=== PATIENT | male | born 1995 | race Caucasian/White ===

== ENCOUNTER 2021-03-08 02:55 | Emergency (ER) | payer OTHER ==
[~2021-03-08] VITALS: Ht 188 cm; Wt 72.6 kg
--- NOTE | 2021-03-08 02:56 | NUR ---
PATIENT TAKEN TO ROOM 04 VIA GURNEY BY FILIPE.
[2021-03-08 02:57] VITALS: BP 116/71
--- NOTE | 2021-03-08 03:00 | NUR ---
25/M PATIENT BIBA COMPLAINING OF LEFT FOOT PAIN 06/07. S/P FALLING OFF SIDEWALK WHILE IN WHEELCHAIR, REPORTING LEFT FOOT GOT CAUGHT ON WHEELCHAIR. NOTED SOME REDNESS AND SWELLING UPON INSPECTION. PT DENIES HITTING HEAD. PT AAOX4 AND ABLE TO MAKE NEEDS KNOWN. RESPIRATIONS ARE EVEN AND UNLABORED TO ROOM AIR. ABDOMEN IS SOFT AND NON-TENDER. SKIN IS WARM AND DRY, PT WITH SUNBURNS ON RIGHT SHOULDER. MED HX: QUADRAPALEGIC (X 2 YEARS), HIGH AND LOW BLOOD PRESSURE, ASTHMA ALLERGIES: MORPHINE
--- NOTE | 2021-03-08 03:02 | NUR ---
Dr. Swanson examining patient.
[2021-03-08] MEDS ORDERED: IBUPROFEN 800 MG TAB PO ONE (03:10)
--- NOTE | 2021-03-08 03:20 | NUR ---
X-Ray at bedside.
--- NOTE | 2021-03-08 03:25 | NUR ---
PT ASSISTED IN CHANGING INTO GOWN. ICE PACK APPLIED TO LEFT FOOT.
--- NOTE | 2021-03-08 03:32 | NUR ---
covid paul swab sent to lab
[2021-03-08] MEDS ORDERED: HYDROcodone/APAP 5/325 MG 1 TAB TAB PO ONE ×2 (05:00→10:50)
[2021-03-08] MEDS ORDERED: BACL10TA4 PO (05:05)
[2021-03-08] MEDS ORDERED: GABA300C PO (05:17)
[2021-03-08] MEDS ORDERED: HYDR-5080 PO (05:18)
[2021-03-08] MEDS ORDERED: ACET-5636 PO (05:18)
[2021-03-08] MEDS ORDERED: DOCU-299 PO (05:18)
[2021-03-08] MEDS ORDERED: METH-1681 PO (05:18)
--- NOTE | 2021-03-08 05:33 | NUR ---
PT ASLEEP. VISIBLE CHEST RISE AND FALL NOTED. NO S/SX OF DISTRESS NOTED. PT KEPT COMFORTABLE. SAFETY MEASURES IN PLACE, SIDE RAILS RAISED, BED IN LOW POSITION, WILL CONTINUE TO MONITOR.
--- NOTE | 2021-03-08 07:15 | NUR ---
Endorsed to Zachariah DE OLIVEIRA for continuity of care.
--- NOTE | 2021-03-08 07:30 | NUR ---
PT REPOSITIONED. PERICARE DONE. NEW BRIED APPLIED AND SHEETS WERE CHANGED.
--- NOTE | 2021-03-08 07:36 | NUR ---
PT STATES HE IS HAVING PAIN, ERMD MADE AWARE
[2021-03-08] MEDS ORDERED: LORazepam 0.5 MG TAB PO ONE (07:40)
--- NOTE | 2021-03-08 10:45 | NUR ---
PT ALERT AND AWAKE, BREATHING EVEN AND UNLABORED. PT ASSISTED ADJUSTING IN BED. PT STATES STILL HAVING PAIN, ERMD MADE AWARE
[2021-03-08] MEDS ORDERED: HYDROmorphone PFS 2 MG/ML SYR IM ONE (10:55)
--- NOTE | 2021-03-08 11:15 | NUR ---
Patient to be transferred to [facility]. Is being transferred due to higher level of care. Receiving facility has accepting physician and available space. ER physician has signed transfer form. Patient or responsible constitution party has agreed to transfer and signed form. Patient belongings inventoried and will be sent with patient. Copy of nursing notes, lab reports, EKG, Physicians Orders and X-rays to be sent with patient. Report called to Denisse DE OLIVEIRA at receiving facility. [facility] ambulance service has been called for transfer. ETA is 45min.
--- NOTE | 2021-03-08 12:07 | NUR ---
PT TAKEN BY TRANSPORT TEAM AT THIS TIME.
[2021-03-08 12:08] VITALS: BP 136/66
== END 2021-03-08 12:07 ==
LOC: MED 02:55
DX: S99.912A Unspecified injury of left ankle, initial encounter (principal); Z20.822 Contact with and (suspected) exposure to COVID-19; R53.81 Other malaise; Z88.5 Allergy status to narcotic agent; V89.2XXA Person injured in unspecified motor-vehicle accident, traffic, initial encounter; Y93.89 Activity, other specified; Y92.89 Other specified places as the place of occurrence of the external cause; Y99.8 Other external cause status
CPT/HCPCS: 73610; 87426; 96372; 99285; J1170